=== PATIENT | male | born 1950 | race Caucasian/White ===

== ENCOUNTER 2024-02-28 17:19 | Emergency (ER) | payer MEDICARE, OTHER, SELFPAY ==
[2024-02-28 17:24] VITALS: BP 139/56; PULSE 78; RESP 16; TEMP 36.6; O2SAT 96
--- NOTE | 2024-02-28 18:07 | ED.WOUNDLAC ---
HPI - Wound/Laceration General Chief Complaint: Wound/Laceration Stated Complaint: finger laceration Time Seen by Provider: 02/28/24 17:35 Source: patient Mode of arrival: ambulatory Limitations: no limitations History of Present Illness HPI narrative: This is a 73 year old male that presents to the ER for laceration to the left first finger sustained just prior to arrival. Also reports he accidentally cut his thumb with a box knife. He is up-to-date on his tetanus vaccination. Denies decreased range of motion or numbness. Related Data Allergies Allergy/AdvReac Type Severity Reaction Status Date / Time [id number] Reductase AdvReac Unknown Verified 02/28/24 17:28 Inhibitor Review of Systems Review of Systems: CONSTITUTIONAL: Denies fever SKIN: Reports laceration MUSCULOSKELETAL: Reports joint pain, and myalgia. NEUROLOGIC: Denies numbness All systems reviewed & are unremarkable except as noted in HPI and below PMFSH Social History Social History (Updated 02/28/24 @ 18:13 by Yumiko Abdi PA-C) Smoking status: Never smoker Exam Narrative: GENERAL: Well-appearing, well-nourished, and in no acute distress. HEAD: Normocephalic, atraumatic. EYES: EOMI. EXTREMITIES: Normal range of motion. No edema. 3 cm linear laceration into subcutaneous to the left thumb proximal phalanx SKIN: Warm, dry, no rash. NEURO: No focal deficits. Alert and oriented x3. PSYCH: Normal mood and affect Course Course Emergency Course: Patient educated on further wound care Vital Signs Vital signs: Vital Signs Temperature 97.9 F 02/28/24 17:24 Pulse Rate 78 02/28/24 17:24 Respiratory Rate 16 02/28/24 17:24 Blood Pressure 139/56 L 02/28/24 17:24 Pulse Oximetry 96 02/28/24 17:24 Oxygen Delivery Room Air 02/28/24 17:24 Temperature 97.9 F 02/28/24 17:24 Pulse Rate 78 02/28/24 17:24 Respiratory Rate 16 02/28/24 17:24 Blood Pressure 139/56 L 02/28/24 17:24 Pulse Oximetry 96 02/28/24 17:24 Oxygen Delivery Room Air 02/28/24 17:24 MDM - Wound/Laceration MDM Narrative Medical decision making narrative: Patient presents to the emergency department for laceration to the left 1st finger sustained just prior to arrival. Patient is neurovascularly intact. He is up-to-date on his tetanus vaccination. His wound was irrigated and closed with sutures. He was educated on further wound care. He is to follow up with primary provider. He was given warnings to return to the ER Differential Diagnosis Differential diagnosis: Likely laceration and avulsion of skin Critical Care Time Critical Care Time Critical Care Time: No Discharge Plan Discharge Clinical Impression: Laceration Patient Disposition: Home, Self-Care Condition: Stable Instructions: Antibiotic Form, Care For Your Stitches (ED), Laceration (ED) Additional Instructions: Return to the emergency department if you experience fever, redness or swelling of your wound, abnormal drainage from your wound, or any other symptoms that are concerning to you. Apply antibiotic ointment daily. Do not soak the wound. Clean with mild soap and water daily Follow-up with your primary care doctor for suture removal in 10-14 days. Prescriptions: New cephalexin 500 mg capsule 500 mg PO Q8H 5 Days Qty: 15 0RF Follow-up/Referrals: PHYSICIAN NOT ON STAFF,NONSTAFF [Non-Staff] -
== END 2024-02-28 18:24 | disposition home or self-care (01) ==
PROVIDERS: Emergency Provider Physician Assistant
DX: S61.012A Laceration without foreign body of left thumb without damage to nail, initial encounter (principal); W27.0XXA Contact with workbench tool, initial encounter
CPT/HCPCS: 12002; 99283